=== PATIENT | male | born 1950 | race Caucasian/White ===

== ENCOUNTER → 2017-01-24 | Outpatient (CLI) | payer BC, MEDICARE ==
--- NOTE | 2017-01-24 12:15 | RAD ---
INDICATION: Chronic low back pain and bilateral radiculopathy. Previous microdiscectomies. TECHNIQUE: Sagittal T1, sagittal T2, sagittal STIR, axial T1, and axial T2 sequences are provided. No comparison is available. FINDINGS: There is no malalignment. There is minimal endplate edema at L4-L5 which appears degenerative. There is no worrisome marrow lesion. There are hemangiomas at L1 and L3. There is mild disc desiccation diffusely. There is mild narrowing of disc height at L4-L5. The conus medullaris is normal in signal intensity and in position, only evaluated in sagittal plane. There is metallic artifact along the anterior margin of L2, L3, and L4. Please correlate with procedural history. The numbering system assumes 5 lumbar type vertebral bodies. Findings by individual level are as follows: L1-L2, L2-L3: There is no canal or foraminal compromise. L3-L4: Minimal disc bulge and mild facet and ligamentum flavum hypertrophy are noted. There is prominent epidural fat. Midline AP diameter of the thecal sac is 11 mm. There is minimal left foraminal narrowing. L4-L5: Partial laminectomy defect is noted on the left. There is a diffuse disc bulge. There is abnormal tissue in a left paracentral location migrating inferiorly, most likely a residual or recurrent herniation. This measures 10 mm transverse, 3 mm AP, and 12 mm craniocaudal. Distinguishing herniation from any granulation tissue is difficult on noncontrast imaging. There is left lateral recess narrowing. This could explain a left L5 radiculopathy. There is bilateral facet hypertrophy and ligamentum flavum hypertrophy on the right. Midline AP diameter of the thecal sac is 11 mm. Foraminal narrowing is mild on the left and minimal on the right. L5-S1: Facet hypertrophy is greater on the right without canal or foraminal compromise. IMPRESSION: 1. Multilevel degenerative disc disease. This includes a residual or recurrent herniation at L4-L5 in a left paracentral location narrowing the left lateral recess, would explain a left L5 radiculopathy. 2. Findings of prior partial laminectomy on the left at L4-L5. Metallic artifact which is presumably surgical along the anterior margin of L2-L4. Electronically signed by: Marcial Franco MD (01/24/2017 12:12 PM) [id number]
== END | disposition home or self-care (01) ==
LOC: MRI 09:44
PROVIDERS: ATTEND Nurse Practitioner Family
DX: M51.16 Intervertebral disc disorders with radiculopathy, lumbar region (principal); L92.8 Other granulomatous disorders of the skin and subcutaneous tissue
CPT/HCPCS: 72148

== ENCOUNTER → 2017-02-25 | Outpatient (CLI) | payer BC ==
[~2017-02-25] MED LIST: GADOBUTROL 10 MMOL/10 ML VIAL IV ONE
[2017-02-25 12:53] LABS: CREATININE 1.1 mg/dL (0.7-1.3); GFR 66.6
--- NOTE | 2017-02-25 13:54 | RAD ---
MRI Lumbar Spine without and with contrast History: Low back pain, leg radiculopathy, previous surgery Technique: Multiplanar, multi sequential pre and postcontrast MR imaging was performed of the lumbar spine. Contrast: 10 cc Gadavist Comparison: 01/24/2017 Findings: Lumbar vertebral body stature is preserved. There is again mild degenerative disc disease at L4-5. There is negligible posterior subluxation L4 relative L5. Conus terminates at the superior aspect of L1. There is nonexpansile, increased T2 signal in the region of the distal cord without associated enhancement. There are multilevel hemangiomas greatest of L1-L3. Minimal L4-5 endplate edema is likely reactive/degenerative in etiology. There is no nodular enhancement of the conus or cauda equina, no significant enhancement in the central intervertebral disc spaces. There is very mild lumbar levoscoliosis. There are some foci of susceptibility artifact along the right anterior aspects of the L3 and L4 vertebral bodies. L2-L3: Spinal canal and neural foramina are adequate. There is mild facet degenerative change and buckling of the ligamentum flavum. L3-L4: There is moderate facet degenerative change and mild to moderate buckling of the ligamentum flavum. There is mild posterior narrowing of the left neural foramen, right neural foramen adequate. Spinal canal is overall adequate. L4-L5: There is again left laminectomy defect. There is enhancing fibrosis along the posterior annular margin greater in the left lateral recess, mild indentation upon the ventral thecal sac in the left lateral recess and near the descending left L5 nerve root. There is mild to moderate facet degenerative change greater on the right. There is mild buckling of the ligamentum flavum on the right. There is very mild narrowing of the right neural foramen. There is focus of enhancement likely due to fibrosis in the inferior aspect of the left neural foramen, contact of the exiting left L4 nerve root. L5-S1: Spinal canal and neural foramina are adequate. There is moderate right and mild left facet hypertrophic change. Impression: 1. There is no significant lumbar spinal stenosis. There is enhancing fibrosis in the anterior left lateral recess at L4-5 near the descending left L5 nerve root. There again has been left laminectomy L4-5. 2. There is mild neural foramina compromise as stated. 3. There is nonenhancing T2 and STIR hyperintense abnormality of the visualized distal cord. Findings could be due to underlying mild hydromyelia, not fully included. 4. There is mild degenerative disc disease at L4-5, minimal endplate edema at this level likely reactive/degenerative in etiology. Electronically signed by: Danny Guadarrama MD (02/25/2017 1:51 PM) [id number]
== END | disposition home or self-care (01) ==
LOC: MRI 12:22
PROVIDERS: ATTEND Physician Assistant Surgical
DX: M54.16 Radiculopathy, lumbar region (principal); M51.36 Other intervertebral disc degeneration, lumbar region; R60.9 Edema, unspecified
CPT/HCPCS: 36415; 72158; 82565; A9585

== ENCOUNTER → 2017-09-22 | Outpatient (CLI) | payer BC ==
[2017-09-22 15:53] LABS: GFR 60.2
[2017-09-22 15:53] LABS: CREATININE 1.2 mg/dL (0.7-1.3)
[2017-09-22] MEDS: GADOBUTROL 7.5 MMOL/7.5 ML VIAL IV ×2 (16:14)
== END | disposition home or self-care (01) ==
LOC: MRI 15:05
DX: M54.16 Radiculopathy, lumbar region (principal); M48.061 Spinal stenosis, lumbar region without neurogenic claudication; G89.29 Other chronic pain
CPT/HCPCS: 36415; 72158; 82565; A9585